=== PATIENT | male | born 1995 | race Caucasian/White ===

== ENCOUNTER 2025-01-17 14:58 | Emergency (ER) | payer MEDICAID, SELFPAY ==
[2025-01-17 14:59] VITALS: BP 183/89; PULSE 127; RESP 18; TEMP 36.4; O2SAT 98; BMI 25.5
--- NOTE | 2025-01-17 15:21 | EDS_ITS ---
HPI HPI - Psych History of Present Illness Chief Complaint: Mental Health Informant: patient and police/sole cutter Onset/Context/Timing Onset: Today Timing: Continuous Current Severity: Moderate Maximum Severity: Moderate Associated Symptoms Associated Symptoms - Psych: Positive for Paranoia Narrative Narrative: 29-year-old male unknown past medical history. He denies. However he does state he was once admitted to a psychiatric hospital. He is currently not under any psychiatric care and denies any medications. Keeps repeating I am about to . Please help me. While examining the patient he keeps having the police magistrate checked the door. Prior similar symptoms: Yes Recent Illness/Hospitalization: No PFSH PFSH Allergy/AdvReac Type Severity Reaction Status Date / Time No Known Allergies Allergy Verified 01/17/25 15:02 Social History Smoking Status: Unknown if ever smoked ROS ROS ED ROS Narrative Denies recent illness. Constitutional Constitutional ED: Denies chills or fever(s) Eyes Eyes: Denies blurry vision ENT ENT ED: Denies ear pain Cardiovascular Cardiovascular: Denies chest pain Respiratory/Chest Respiratory/Chest: Denies cough Gastrointestinal Gastrointestinal: Denies abdominal pain Genitourinary Genitourinary ED: Denies dysuria Musculoskeletal Musculoskeletal: Denies arthralgias Integumentary Denies abscess Neurologic Neurologic: Denies headache(s) Psychiatric Psychiatric: Denies anxiety or depression Endocrine Endocrinology: Denies polydipsia Hematologic/Lymphatic Hematologic/Lymphatic: Denies easy bleeding, easy bruising or lymphadenopathy Allergic/Immunologic Allergic/Immunologic ED: Denies mouth swelling, tongue swelling or urticaria EXAM Physical Exam Narrative Exam Narrative: 29-year-old male sitting upright in bed. Nurse and please officer present in the room. Vital signs are stable and he is tachycardic. He does seem anxious and paranoid. Speech EENT exam pupils are round reactive light. Moist mucous membranes. No signs of trauma to the face or scalp. Neck nontender. No lymphadenopathy. No trauma. Back nontender. Lungs clear to auscultation bilaterally. Heart tachycardic 120 no murmur. Chest wall ribs nontender. Abdomen soft nontender. Moving all 4 extremities. 5 out of 5 courtesy car driver strength. Dorsi flexion intact. Nontender no edema. Neurologically he is awake and alert. Answering questions following commands. Const Vital Signs: 01/17/25 14:59 01/17/25 15:59 Temperature 97.5 F L Temperature Source Temporal Pulse Rate 127 H 98 Respiratory Rate 18 20 H Blood Pressure 183/89 H 163/85 H Blood Pressure Mean 120 111 Pulse Ox 98 100 Oxygen Delivery Method Room Air Room Air Positive well nourished and well developed; Negative for obese, cachectic, contractures or unkempt General Appearance ED: well developed and NAD; Negative for unkempt, cachectic or contractures Nutritional Appearance: Negative for cachectic or obese HEENT Reports moist mucous membranes normocephalic and atraumatic Eyes PERRL and EOMs intact bilaterally Neck no lymphadenopathy, supple and no JVD Resp normal respiratory effort and clear to auscultation bilaterally Cardio S2 normal heart sound and no murmurs; Negative for S1 normal heart sound Rate: tachycardic GI non-tender, non-distended and no masses Auscultation: normoactive bowel sounds Palpation: soft; Negative for tender or guarding Back/Spine no CVA tenderness General Back: Negative for CVA tenderness Cervical Spine: Negative for cervical spine tenderness Thoracic Spine / Upper Back: Negative for thoracic spinal tenderness Lumbar Spine / Lower Back: Negative for lumbar spinal tenderness Extremity normal to inspection General Extremety ED: Negative for edema, tenderness or other findings General Extremity: Negative for edema or other findings Neuro oriented x3, CN's II-XII intact bilaterally and no sensory deficits noted Sensorium / Orientation: alert, oriented to person, oriented to place and oriented to time Motor Exam: strength 5/5 throughout Psych cooperative, speech normal, activity/motor behavior normal, denies hallucinations, denies homicidal ideation and denies suicidal ideation; Negative for mental status grossly normal, thought process normal or affect normal Psych Narrative: Very paranoid. Appearance: grossly normal, appropriate and well kempt; Negative for unkempt Attitude: paranoid Activity / Motor Behavior: appropriate eye contact Speech: normal speech Mood & Affect: anxious Thought Process: illogical Thought Content: normal thought content Attention / Concentration: attention grossly intact Memory / Cognition: memory grossly intact Insight: fair Judgement: fair Skin General Skin Exam: Negative for jaundice Lesions: no lesions Trauma: Negative for abrasion Wounds: Negative for amputation MDM MDM MDM Narrative Medical decision making narrative: 29-year-old male unknown past psychological history currently is displaying a lot of paranoia. Given Geodon to help him relax. ED mental health labs will be obtained. OBS evaluation either by crisis or or social media coordinator. Patient being evaluated by social media coordinator at 4:20 PM. History & Record Review Discussion w/independent historian: Patient Additional record(s) reviewed:: No prior records Lab Data Attestation: I reviewed the patient's lab results. Lab results narrative: CBC normal. White count at 10. H&H 14 and 41. Platelets 287 Chemistries show potassium of 2.9. Gap 18. BUN and creatinine 13 and 1.2. Glucose 159. Alcohol is negative. Tox screen negative except for cannabis. Labs: Laboratory Results - last 24 hr 01/17/25 01/17/25 15:11 15:20 WBC 10.9 RBC 4.66 Hgb 14.3 Hct 41.1 MCV 88.2 MCH 30.7 MCHC 34.8 RDW Std Deviation 41.2 RDW Coeff of Ronny 12.9 Plt Count 287 MPV 9.6 Immature Gran % (Auto) 0.500 Neut % (Auto) 76.0 H Lymph % (Auto) 18.2 L [place] % (Auto) 4.3 Eos % (Auto) 0.4 Baso % (Auto) 0.6 Absolute Neuts (auto) 8.3 H Absolute Lymphs (auto) 1.97 Nucleated RBC % 0 Sodium 137 Potassium 2.9 L Chloride 98 Carbon Dioxide 20.9 L Anion Gap 18 H BUN 13 Creatinine 1.22 H Estim Creat Clear Calc 88.54 Est GFR (MDRD) Non-Af 82 BUN/Creatinine Ratio 10.4 Glucose 159 H Calcium 9.3 Urine Opiates Screen NEGATIVE U Buprenorphine Qual NEGATIVE Ur Oxycodone Screen NEGATIVE Urine Methadone Screen NEGATIVE Urine Fentanyl Screen NEGATIVE Ur Barbiturates Screen NEGATIVE Ur Phencyclidine Scrn NEGATIVE Ur Amphetamines Screen NEGATIVE U Benzodiazepines Scrn NEGATIVE Urine Cocaine Screen NEGATIVE U Cannabinoids Screen PRESUMPTIVE POSITIVE Ethyl Alcohol < 10.1 Discharge Plan Triage Chief Complaint: Mental Health ED Provider: Edmar Liu Dx/Rx/DC Orders Clinical Impression: Acute paranoia, History of recreational drug use Primary Care Provider: Care Physician,No Primary Referrals: Rishabh Xiong MD [Non-Staff, Pediatrics] Print Language: Kazakh Disposition Disposition: Psychiatric Hospital or Unit
--- NOTE | 2025-01-17 15:21 | ED.RN ---
Per Dr Liu, no sitter is needed. PD still in department.
[2025-01-17 15:34] LABS: Hematocrit 41.1 % (40-54); Hemoglobin 14.3 g/dL (13.0-16.5); Immature Granulocytes Count 0.050 X10^3/uL (0.0-0.0); Mean Corp Hgb Conc 34.8 g/dL (32-36); Mean Corpuscular Volume 88.2 fL (80-94); Mean Platelet Vol. 9.6 fl (6.2-12.0); NRBC Flagged by Analyzer 0 % (0-5); Platelet Count 287 K/mm3 (150-450); RBC Distribution Width CV 12.9 % (11.6-14.6); RBC Distribution Width SD 41.2 fl (35.1-43.9); Red Blood Count 4.66 M/mm3 (4.6-6.2); White Blood Count 10.9 K/mm3 (4.4-11.0)
[2025-01-17 15:54] LABS: Alcohol, Blood (Medical)-Serum < 10.1 mg/dL (<=10.0); Anion Gap 18 (5-15); BUN 13 mg/dL (4-19); BUN/Creat Ratio 10.4 RATIO (10-20); Calcium,Total 9.3 mg/dL (7.6-11.0); Carbon Dioxide 20.9 mmol/L (21.0-32.0); Chloride 98 mmol/L (98-108); Estimated Creatinine Clearance 88.54 ml/min (50-250); Glucose 159 mg/dL (70-99); Potassium 2.9 mmol/L (3.3-5.1)
[2025-01-17 15:59] VITALS: BP 163/85; PULSE 98; RESP 20; O2SAT 100
[2025-01-17] MEDS: Ziprasidone IM 20 MG/ML VIAL IM (16:05)
--- NOTE | 2025-01-17 16:59 | CM.ED ---
Social Work Psychiatric Assessment Reason for consult: Mental Health Informant(s): Patient, medical record, patients parents Chief Complaint: ??Patient was brought to ED by [facility] after patient called police stating someone was trying to kill him. ?Patient is paranoid and delusional, presenting with an anxious, flat affect, unable to engage in conversation, unable to answer direct questions.? Responded to most questions with repetitive phrases such as ?I? need help, why wont you help me ma?am?.? Throughout the interview ?patient would occasionally make statements such as ? I am paranoid, please help me, I really need your help, someone is going to hurt me, I need a psych foster now, where are the police, I need the police here, someone is trying to kill me? .? ??Patient did state that he feels like he is having a mental breakdown.? Patient has a flat anxious affect, eyes wide during conversation.? At one point, patient got out of bed to check for the police, patient then walked around the bed and attempted to hide.? Marital/Social History: Patient is a 29 year old male Living Situation: Reports to living in his own apartment Support/Resources: ?unknown, patient unable to answer most questions History: None Education and Employment History: ?patient stated he graduated high school and works at [employer] Mental Health Treatment/History: ?Unknown.? Patient reported that he had been in a psychiatric hospital once in the past, was unable to give details.? Parents stated they believed he was at [facility] for 3 days.? Triggers/Stressors to mental health: ?unknown Coping Skills: unknown History of Abuse (physical/sexual/verbal/emotional): ?unknown Substance Abuse Current/Historical: ?Parents reports a history of alcohol abuse and marijuana use.? Police report that patient has been using illicit drugs over the last few years.? Risk to Self/Others: ? Suicidal (thought/plan/intent/attempt): patient denies ? Access to Lethal Means: ?n/a ? Homicidal (thought/plan/intent/attempt): unknown ? History of Violence (self/others/objects): ?unknown Mental Status Exam: ??? Orientation: ?unable to assess ??? Memory: intact Appearance/General Behavior: ?nervous Mood/Affect: ?anxious, bizarre, flat Communication Pattern: ?does not initiate, does not engage Thought Process: delusional, paranoid General Intellectual Functioning: ?unknown Judgment: poor Insight: ?poor Plan: Due to patients paranoid and psychosis, inpatient psychiatric hospitalization in recommended. Physician consulted and in agreement with same. Starla Palacio, MULESER, AIR BRAKE MECHANIC
[2025-01-17 17:47] LABS: Barbiturate Urine NEGATIVE (< 200 ng/mL); Benzodiazepine Urine NEGATIVE (< 200 ng/mL); PCP Urine NEGATIVE (< 25 ng/mL); THC Urine PRESUMPTIVE POSITIVE (< 50 ng/mL)
[2025-01-17] MEDS: Potassium Chloride Oral Tablet 20 MEQ 60 MEQ PO (18:46)
--- NOTE | 2025-01-17 19:15 | CM.ED ---
Social Work SW contacted [facility], no beds until tomorrow. [facility] contacted, beds available, referral sent. Patient was accepted to [facility], accepting is [place]. Will be going to [facility]. N[facility]N [phone] Opt 1. [place] slip faxed. Starla Palacio, WIRE BORDER ASSEMBLER, CENTRAL STORES ATTENDANT
[2025-01-17 20:02] VITALS: BP 163/88; PULSE 88; RESP 16; TEMP 36.6; O2SAT 100
--- NOTE | 2025-01-17 20:07 | NURSING ---
[facility] called report given. Physicians squad here report given to them. Pt off unit.
== END 2025-01-17 20:08 ==
PROVIDERS: Emergency Provider Emergency Medicine; Visit Provider Emergency Medicine
DX: F22 Delusional disorders (principal); Z87.898 Personal history of other specified conditions
CPT/HCPCS: 80048; 80307; 82077; 85025; 96372; 99285; J3486

== ENCOUNTER 2025-02-20 09:54 | Emergency (ER) | payer MEDICAID, SELFPAY ==
[2025-02-20 09:55] VITALS: BP 151/98; PULSE 87; RESP 16; TEMP 36.8; O2SAT 99; BMI 26.7
--- NOTE | 2025-02-20 10:15 | EX.ED.VIS.PS ---
HPI HPI - Psych History of Present Illness Chief Complaint: Suicidal Informant: patient Onset/Context/Timing Onset: Yesterday Context: Gradual Onset Timing: Continuous Worsened by: - (Smoking marijuana, loud noises) Relieved by: Nothing Associated Symptoms Associated Symptoms - Psych: Positive for Change in Eating, Change in sleeping, Suicidal Thoughts, Paranoia, Visual Hallucinations and Auditory Hallucinations Specific plan (suicidal thought): Getting a gun and shooting himself, jumping off of a bridge Narrative Narrative: Patient presents with suicidal ideations and paranoid ideations that have been getting worse since yesterday. Patient states he was hospitalized 1 month ago for this. Patient states that he was having visual and auditory hallucinations at that time. Patient states that they have been persistent since that time. Patient states the voices are telling him that other people are saying things about him. Patient admits to suicidal ideations where he thought he might get a gun and shoot himself or jump off of a bridge. Patient states he has been smoking more marijuana recently and this is making his suicidal ideations worse. Prior similar symptoms: Yes PFSH PFSH Allergy/AdvReac Type Severity Reaction Status Date / Time No Known Allergies Allergy Verified 02/20/25 09:55 Surgical History no surgical history no surgical history Social History (Updated 02/20/25 @ 10:[address] Jaspal Correa, DO) Smoking Status: Current some day smoker tobacco type: cigarettes alcohol intake: current alcohol intake frequency: a few times a month substance use type: marijuana ROS ROS ED Constitutional Constitutional ED: Denies chills or fever(s) Eyes Eyes: Reports blurry vision and change in vision ENT ENT ED: Denies rhinorrhea or sore throat Cardiovascular Cardiovascular: Denies chest pain or palpitations Respiratory/Chest Respiratory/Chest: Denies cough or dyspnea Gastrointestinal Gastrointestinal: Reports nausea and vomiting Genitourinary Genitourinary ED: Denies dysuria or hematuria Musculoskeletal Musculoskeletal: Reports back pain; Denies neck pain Integumentary Denies abscess or rash Neurologic Neurologic: Reports headache(s); Denies weakness Psychiatric Psychiatric: Reports anxiety, depression, suicidal ideation and suicidal thoughts Allergic/Immunologic Allergic/Immunologic ED: Denies mouth swelling or urticaria EXAM Physical Exam Const Vital Signs: 02/20/25 09:55 02/20/25 11:33 Temperature 98.3 F Temperature Source Oral Pulse Rate 87 88 Respiratory Rate 16 16 Blood Pressure 151/98 H Blood Pressure Mean 115 Pulse Ox 99 99 Oxygen Delivery Method Room Air Room Air Positive well nourished and well developed General Appearance ED: well developed and NAD HEENT Reports moist mucous membranes Neck supple and no JVD Resp normal respiratory effort and clear to auscultation bilaterally Cardio Rate: regular rate Rhythm: regular rhythm GI non-tender and non-distended Palpation: soft Neuro oriented x3, CN's II-XII intact bilaterally, no sensory deficits noted and deep tendon reflexes 2+ bilaterally Taniya Coma Scale: document GCS findings Spontaneous Obeys Commands Oriented 15 Sensorium / Orientation: alert Motor Exam: strength 5/5 throughout Psych mental status grossly normal Appearance: grossly normal and well kempt Attitude: calm Activity / Motor Behavior: appropriate eye contact Speech: normal speech Mood & Affect: depressed and flat affect Thought Content: suicidality, delusion(s) and hallucination(s) MDM MDM MDM Narrative Medical decision making narrative: Medical screening labs will be obtained. CBC will be obtained to assess for leukocytosis and anemia. Basic metabolic profile will be obtained to assess for electrolyte abnormality and renal function. Serum alcohol level will be obtained to assess for alcohol intoxication. Urine drug screen will be obtained to assess for substance abuse. Lab Data Attestation: I reviewed the patient's lab results. Lab results narrative: CBC was reviewed and was within normal limits. Basic metabolic profile was reviewed and was within normal limits. Serum alcohol level was reviewed and was less than 10.1. Urine drug screen was reviewed and was positive for cannabinoids. Labs: Laboratory Results - last 24 hr 02/20/25 02/20/25 10:21 10:27 WBC 6.3 RBC 4.74 Hgb 14.7 Hct 43.1 MCV 90.9 MCH 31.0 MCHC 34.1 RDW Std Deviation 48.9 H RDW Coeff of Ronny 14.6 Plt Count 248 MPV 9.4 Immature Gran % (Auto) 0.600 Neut % (Auto) 72.5 H Lymph % (Auto) 18.8 L [place] % (Auto) 6.5 Eos % (Auto) 0.8 Baso % (Auto) 0.8 Absolute Neuts (auto) 4.5 Absolute Lymphs (auto) 1.18 Nucleated RBC % 0 Sodium 139 Potassium 4.7 Chloride 101 Carbon Dioxide 25.9 Anion Gap 12 BUN 18 Creatinine 1.05 Estim Creat Clear Calc 102.87 Est GFR (MDRD) Non-Af 98 BUN/Creatinine Ratio 16.8 Glucose 96 Calcium 9.5 Urine Opiates Screen NEGATIVE U Buprenorphine Qual NEGATIVE Ur Oxycodone Screen NEGATIVE Urine Methadone Screen NEGATIVE Urine Fentanyl Screen NEGATIVE Ur Barbiturates Screen NEGATIVE Ur Phencyclidine Scrn NEGATIVE Ur Amphetamines Screen NEGATIVE U Benzodiazepines Scrn NEGATIVE Urine Cocaine Screen NEGATIVE U Cannabinoids Screen PRESUMPTIVE POSITIVE Ethyl Alcohol < 10.1 Treatment and Re-Evaluation Narrative: Patient was given a dose of Ativan. Patient is feeling better on reevaluation. Patient was evaluated by socially responsible investment adviser. She recommended placement. She was able to get the patient placed to [facility]. Patient will be transferred there when a bed and ambulance becomes available. Patient was given a nicotine patch. Patient understood and was agreeable with the plan. All questions were answered. Discharge Plan Triage Chief Complaint: Suicidal ED Provider: Jaspal Correa Dx/Rx/DC Orders Clinical Impression: Depression, Suicidal ideations, Paranoid ideation Primary Care Provider: Care Physician,No Primary Referrals: Care Physician,No Primary [Primary Care Provider, Medical] Print Language: Chadian Disposition Disposition: Psychiatric Hospital or Unit Discharge Location: [facility]
[2025-02-20 10:50] LABS: Hematocrit 43.1 % (40-54); Hemoglobin 14.7 g/dL (13.0-16.5); Immature Granulocytes Count 0.040 X10^3/uL (0.0-0.0); Mean Corp Hgb Conc 34.1 g/dL (32-36); Mean Corpuscular Volume 90.9 fL (80-94); Mean Platelet Vol. 9.4 fl (6.2-12.0); NRBC Flagged by Analyzer 0 % (0-5); Platelet Count 248 K/mm3 (150-450); RBC Distribution Width CV 14.6 % (11.6-14.6); RBC Distribution Width SD 48.9 fl (35.1-43.9); Red Blood Count 4.74 M/mm3 (4.6-6.2); White Blood Count 6.3 K/mm3 (4.4-11.0)
[2025-02-20 11:12] LABS: Barbiturate Urine NEGATIVE (< 200 ng/mL); Benzodiazepine Urine NEGATIVE (< 200 ng/mL); PCP Urine NEGATIVE (< 25 ng/mL); THC Urine PRESUMPTIVE POSITIVE (< 50 ng/mL)
[2025-02-20 11:13] LABS: Alcohol, Blood (Medical)-Serum < 10.1 mg/dL (<=10.0); Anion Gap 12 (5-15); BUN 18 mg/dL (4-19); BUN/Creat Ratio 16.8 RATIO (10-20); Calcium,Total 9.5 mg/dL (7.6-11.0); Carbon Dioxide 25.9 mmol/L (21.0-32.0); Chloride 101 mmol/L (98-108); Estimated Creatinine Clearance 102.87 ml/min (50-250); Glucose 96 mg/dL (70-99); Potassium 4.7 mmol/L (3.3-5.1)
[2025-02-20 11:33] VITALS: PULSE 88; RESP 16; O2SAT 99
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
[2025-02-20] MEDS: Nicotine (PBKC) 21 MG Patch TD (13:29)
--- NOTE | 2025-02-20 13:41 | CM.ED ---
Social Work Patient was referred and accepted at [facility], unit unknown at this time, accepting is Dr. Godoy. N2N [phone]. [place] [facility]ip sent. Patient notified of accepting facility and transport time. Starla Davis MSW, SENIOR INTERIOR DESIGNER
[2025-02-20 14:38] VITALS: BP 145/85; PULSE 75; RESP 16; TEMP 36.7; O2SAT 96
== END 2025-02-20 14:45 ==
PROVIDERS: Emergency Provider Emergency Medicine; Visit Provider Emergency Medicine
DX: F32.A Depression, unspecified (principal); F22 Delusional disorders; R45.851 Suicidal ideations; F17.210 Nicotine dependence, cigarettes, uncomplicated
CPT/HCPCS: 36415; 80048; 80307; 82077; 85025; 99284

== ENCOUNTER 2025-02-26 17:24 | Emergency (ER) | payer MEDICAID, SELFPAY ==
[2025-02-26 17:26] VITALS: BP 154/76; PULSE 82; RESP 18; TEMP 36.8; O2SAT 99; BMI 26.7
--- NOTE | 2025-02-26 17:45 | EKG12_ITS ---
Test Reason : [facility] [place] Blood Pressure : */* mmHG Vent. Rate : 83 BPM Atrial Rate : 83 BPM P-R Int : 158 ms QRS Dur : 90 ms QT Int : 352 ms P-R-T Axes : 41 40 22 degrees QTcB Int : 413 ms Sinus rhythm with Fusion complexes Otherwise normal ECG Confirmed by ALVARO RANKIN, ADELE ([id number]), makeup editor KATJA EARL ([id number]) on 03/03/2025 8:26:39 AM Referred By: Confirmed By: ADELE JOHN MD
[2025-02-26 17:50] VITALS: BP 118/78; PULSE 78; RESP 16; O2SAT 98
[2025-02-26 18:02] LABS: Squamous Epithelial Cells - UA 0 SEEN /hpf (0-5)
[2025-02-26 18:17] LABS: Hematocrit 42.3 % (40-54); Hemoglobin 14.6 g/dL (13.0-16.5); Immature Granulocytes Count 0.070 X10^3/uL (0.0-0.0); Mean Corp Hgb Conc 34.5 g/dL (32-36); Mean Corpuscular Volume 89.6 fL (80-94); Mean Platelet Vol. 9.5 fl (6.2-12.0); NRBC Flagged by Analyzer 0 % (0-5); Platelet Count 282 K/mm3 (150-450); RBC Distribution Width CV 13.5 % (11.6-14.6); RBC Distribution Width SD 44.5 fl (35.1-43.9); Red Blood Count 4.72 M/mm3 (4.6-6.2); White Blood Count 11.1 K/mm3 (4.4-11.0)
--- NOTE | 2025-02-26 18:24 | EDS_ITS ---
HPI History of Present Illness Chief Complaint: Suicidal Narrative Narrative: Patient was seen and examined after presenting to ED for suicidal thoughts patient was just discharged today from [facility] after being there for 6 days patient informs me "all I know is that I needed a couple $100 to go get myself a gun at a gun show and then I will shoot myself and kill myself that way." Patient denies any HI. PFSH PFSH Home Medications Medication Instructions Recorded Last Taken Type aripiprazole 20 mg tablet 20 mg PO QHS mental health 1 04/28/24 Unknown History sertraline 25 mg tablet 25 mg PO DAILY 02/26/25 Unkn own History trazodone 50 mg tablet 50 mg PO QHS 02/26/25 Unknow n History Allergy/AdvReac Type Severity Reaction Status Date / Time No Known Allergies Allergy Verified 02/26/25 17:25 Social History Smoking Status: Current some day smoker tobacco type: cigarettes alcohol intake: current alcohol intake frequency: a few times a month substance use type: marijuana ROS ROS ED ROS Narrative Pertinent Positives: Suicidal ideations states that he just feels manic as well Pertinent Negatives: HI auditory hallucinations The remainder of review of systems negative unless otherwise stated in the HPI above. EXAM Physical Exam Narrative Exam Narrative: Patient is afebrile hemodynamically stable does not appear toxic or in distress he is normocephalic and atraumatic he is ambulatory within his room no pressured speech but definitely seems either under the influence of something or somewhat manic Const Vital Signs: 02/26/25 17:26 02/26/25 17:50 Temperature 98.2 F Temperature Source Oral Pulse Rate 82 78 Respiratory Rate 18 16 Blood Pressure 154/76 H 118/78 Blood Pressure Mean 102 91 Pulse Ox 99 98 Oxygen Delivery Method Room Air MDM MDM MDM Narrative Medical decision making narrative: Nursing notes, triage notes, available previous documentation, and vital signs were reviewed. Any discrepancies noted were addressed. Interventions: P.o. Ativan Labs Reviewed: Minimal leukocytosis 11.1 hemoglobin is appropriate at 14.6 no significant electrolyte abnormalities or renal insufficiency or transaminitis toxicology screen so far unremarkable alcohol level is negative EKG: Sinus rhythm rate of 83 QTc and WA intervals are otherwise appropriate. EKG interpretation is noted and agreed to in the EMR. The interpretation of this patient's EKG contributed directly to the care and management of this patient. Previous Documentation Reviewed: None available or applicable at this time. ED Course: Patient presenting with suicidal ideation states that he wants to buy a gun even though he has been "red flag but I know that I can go a few $100 over at a gun show and get 1 to kill myself." Discussed with social work patient will be pink slipped plan to place. At this point patient is medically cleared for placement This note was made utilizing voice recognition software. All attempts were made to correct spelling or other errors prior to note completion. However, due to the fast-paced nature of emergency medicine, some errors may still be present. Lab Data Labs: Laboratory Results - last 24 hr 02/26/25 02/26/25 17:46 17:52 WBC 11.1 H RBC 4.72 Hgb 14.6 Hct 42.3 MCV 89.6 MCH 30.9 MCHC 34.5 RDW Std Deviation 44.5 H RDW Coeff of Ronny 13.5 Plt Count 282 MPV 9.5 Immature Gran % (Auto) 0.600 Neut % (Auto) 86.1 H Lymph % (Auto) 9.1 L Chase % (Auto) 3.7 Eos % (Auto) 0.0 Baso % (Auto) 0.5 Absolute Neuts (auto) 9.5 H Absolute Lymphs (auto) 1.01 Nucleated RBC % 0 Sodium 133 Potassium 3.8 Chloride 95 L Carbon Dioxide 22.6 Anion Gap 16 H BUN 16 Creatinine 1.17 Estim Creat Clear Calc 92.32 Est GFR (MDRD) Non-Af 86 BUN/Creatinine Ratio 13.8 Glucose 191 H Calcium 9.7 Total Bilirubin 0.58 AST 34 ALT 33 Alkaline Phosphatase 68 Total Protein 7.4 Albumin 4.9 Globulin 2.5 Albumin/Globulin Ratio 1.9 Urine Opiates Screen NEGATIVE U Buprenorphine Qual NEGATIVE Ur Oxycodone Screen NEGATIVE Urine Methadone Screen NEGATIVE Urine Fentanyl Screen NEGATIVE Ur Barbiturates Screen NEGATIVE Ur Phencyclidine Scrn NEGATIVE Ur Amphetamines Screen NEGATIVE U Benzodiazepines Scrn NEGATIVE Urine Cocaine Screen NEGATIVE U Cannabinoids Screen PRESUMPTIVE POSITIVE Ethyl Alcohol < 10.1 Discharge Plan Triage Chief Complaint: Suicidal ED Provider: Morgan Francis Dx/Rx/DC Orders Clinical Impression: Suicidal ideations, Paranoid ideation, History of depression Prescriptions: No Action trazodone 50 mg tablet 50 mg PO QHS sertraline 25 mg tablet 25 mg PO DAILY aripiprazole 20 mg tablet 20 mg PO QHS Primary Care Provider: Care Physician,No Primary Referrals: Care Physician,No Primary [Primary Care Provider, Medical] Print Language: Congolese Disposition Disposition: Psychiatric Hospital or Unit D/C Safety Score for UGIB Assessment Taniya-Blatchford Bleeding Score (GBS): Stratifies upper GI bleeding patients who are "low-risk" and candidates for outpatient management. Hemoglobin, BUN, Recent Vital Signs: Hgb 14.6 g/dL (13.0-16.5) 02/26/25 17:52 BUN 16 mg/dL (4-19) 02/26/25 17:52 Pulse Rate 78 Blood Pressure 118/78 Score Interpretation: Score of 0: A GBS of 0 is a “Low Risk” GI bleed, and is highly sensitive (99.6% in a 2007 retrospective study) for predicting which patients did not require any “medical intervention”: blood transfusion, endoscopy, or surgery. This was confirmed in a 2009 [facility] study where patients with a score of 0 were actually discharged and had no GI bleeding mortality at 6 month followup Score above 0: A GBS greater than zero suggests a “High Risk” GI bleed that is likely to require “medical intervention”: transfusion, endoscopy, or surgery. A higher GBS also correlated with a higher likelihood of needing intervention Scores >/= 6 are associated with >50% risk of needing intervention D/C Safety Score for LGIB Assessment Assessment Tool: Readmission and adverse event risk in patients with acute lower GI bleeding. Hemoglobin and Recent Vital Signs: Hgb 14.6 g/dL (13.0-16.5) 02/26/25 17:52 Pulse Rate 78 02/26/25 17:50 Blood Pressure 118/78 02/26/25 17:50 Score Interpretation: Probability Percentage of safe discharge (absence of rebleeding, blood transfusion, therapeutic intervention, 28 day readmission, or ) Score of 8 or below: Consider discharge, with appropriate precautions. Score of 9 or above: Discharge NOT recommended. Consider admission with further workup and resuscitation as necessary.
[2025-02-26 18:28] LABS: Alcohol, Blood (Medical)-Serum < 10.1 mg/dL (<=10.0)
[2025-02-26 18:34] LABS: Barbiturate Urine NEGATIVE (< 200 ng/mL); Benzodiazepine Urine NEGATIVE (< 200 ng/mL); PCP Urine NEGATIVE (< 25 ng/mL); THC Urine PRESUMPTIVE POSITIVE (< 50 ng/mL)
[2025-02-26 18:34] LABS: AST(SGOT) 34 U/L (<=37); Alanine Aminotransfer ALT/SGPT 33 U/L (<=46); Albumin, Serum 4.9 g/dL (3.5-5.0); Alkaline Phosphatase 68 U/L (40-129); Anion Gap 16 (5-15); BUN 16 mg/dL (4-19); BUN/Creat Ratio 13.8 RATIO (10-20); Calcium,Total 9.7 mg/dL (7.6-11.0); Carbon Dioxide 22.6 mmol/L (21.0-32.0); Chloride 95 mmol/L (98-108); Estimated Creatinine Clearance 92.32 ml/min (50-250); Globulin 2.5 g/dL (2.2-4.2); Glucose 191 mg/dL (70-99); Potassium 3.8 mmol/L (3.3-5.1)
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
--- NOTE | 2025-02-26 19:16 | CM.ED ---
Social Work SW contacted [facility] as patient was just discharged from their hospital this morning. [facility] stated they would review referral, referral sent. Patient was accepted back to [facility], will be going to [facility]. N2N [phone] Opt 3. Accepting physician is Dr. Godoy. [facility] slip faxed and patient notified of accepting facility. Starla Palacio, PHARMACEUTICAL OFFICER, GROUND CREWMAN [facility] [employer]
--- NOTE | 2025-02-26 19:21 | PCA ---
pt accepted [facility] n2[facility] [phone] opt 3.
[2025-02-26 20:10] LABS: Color, Urine Yellow (Yellow); Glucose, Dipstick 100 mg/dl (Normal); Ketone-Dipstick Negative (Negative); Leukocyte Esterase-Dipstick Negative /ul (Negative); Nitrite-Dipstick Negative (Negative); Occult Blood-Urine 10 /ul (Negative); Protein-Dipstick 30 mg/dl (Negative); Specific Gravity, Urine 1.025 (1.002-1.030); Urine Bilirubin Dipstick Negative (Negative)
[2025-02-26 20:51] VITALS: BP 156/89; PULSE 97; RESP 18; TEMP 36.8; O2SAT 98
[2025-02-26 21:44] LABS: Red Blood Cells-Urine 0-5 SEEN /hpf (0-5)
[2025-02-26 21:45] LABS: Mucous, Urine RARE /hpf (<or=2+)
[2025-02-26] MEDS: Nicotine (PBKC) 21 MG Patch TD (22:15)
== END 2025-02-27 00:57 ==
PROVIDERS: Emergency Provider Specialist/Technologist Athletic Trainer; Visit Provider Specialist/Technologist Athletic Trainer
DX: F32.A Depression, unspecified (principal); R45.851 Suicidal ideations; F17.210 Nicotine dependence, cigarettes, uncomplicated
CPT/HCPCS: 80053; 80307; 81001; 82077; 85025; 93005; 99285